=== PATIENT | female | born 1995 | race Caucasian/White ===

== ENCOUNTER 2018-05-20 10:45 | Inpatient (IN) | payer BC, OTHER ==
[2018-05-20] MEDS ORDERED: OXYTOCIN 10000 MU/ML SOL IM PRN (15:31)
[2018-05-20] MEDS ORDERED: CARBOPROST 250 MCG/ML SOL IM PRN (15:31)
[2018-05-20] MEDS ORDERED: MEPIVACAINE HCL 1% MPF 30 ML/VIAL SOL INFIL PRN (15:31)
[2018-05-20] MEDS ORDERED: LACTATED RINGERS 1,000 ML IV PRN (15:31)
[2018-05-20] MEDS ORDERED: METHYLERGONOVINE MALEATE 0.2 MG/ML SOL IM PRN (15:31)
[2018-05-20] MEDS ORDERED: SODIUM CHLORIDE 0.9% FLUSH 10 ML SOL IV PRN (15:31)
[2018-05-20] MEDS ORDERED: SODIUM CHLORIDE 0.9% FLUSH 10 ML SOL IV SCH (15:45)
[2018-05-20] MEDS: FENTANYL 100MCG/2ML SOL IV PRN ×2 (15:55→16:18)
[2018-05-20 15:57] LABS: BASOPHILS % (AUTO) 0 % (0-3); EOSINOPHILS % (AUTO) 0 % (0-9); HEMATOCRIT 36 % (35-47); HEMOGLOBIN 11.5 gm/dl (12.0-15.5); LYMPHOCYTES % (AUTO) 13.8 % (10-50); MEAN CORPUSCULAR HEMOGLOBIN 27.6 pg (27.0-32.0); MEAN CORPUSCULAR HGB CONC 31.8 gm/dl (32.0-36.0); MEAN CORPUSCULAR VOLUME 87 fL (81-99); MONOCYTES % (AUTO) 5.9 % (0-12); NEUTROPHILS % (AUTO) 79.7 % (37-80)
[2018-05-20] MEDS: LACTATED RINGERS 1,000 ML IV SCH ×2 (16:30→16:45)
[2018-05-20] MEDS ORDERED: LACTATED RINGERS 1,000 ML IV SCH (16:30)
[2018-05-20] MEDS ORDERED: FENTANYL 250 MCG/ 5ML SOL ONE (16:48)
[2018-05-20] MEDS ORDERED: LIDOCAINE HCL 2% MPF 10 ML SOL ONE (16:48)
[2018-05-20] MEDS ORDERED: ROPIVACAINE HYDROCHLORIDE 5 MG/ML SOL ONE ×2 (16:49→18:01)
[2018-05-20] MEDS ORDERED: NALBUPHINE HCL 20 MG/ML SOL IV PRN (18:32)
[2018-05-20] MEDS ORDERED: DIPHENHYDRAMINE 50 MG/ML SOL IV PRN (18:32)
[2018-05-20] MEDS ORDERED: NALOXONE HYDROCHLORIDE 0.4 MG/ML SOL IV PRN (18:32)
[2018-05-20] MEDS ORDERED: EPHEDRINE SULFATE 50 MG/ML SOL IV PRN (18:32)
[2018-05-20] MEDS ORDERED: ALUMINUM/MAGNESIUM 30 ML SUS PO PRN (20:59)
[2018-05-20] MEDS ORDERED: BENZOCAINE/MENTHOL 1 SPR TOP PRN (22:47)
[2018-05-20] MEDS ORDERED: APAP/HYDROCODONE 1 EACH TABLET PO PRN (22:47)
[2018-05-20] MEDS ORDERED: FLEET ENEMA PR PRN (22:47)
[2018-05-20] MEDS ORDERED: METHYLERGONOVINE MALEATE 0.2 MG TAB PO PRN (22:47)
[2018-05-20] MEDS ORDERED: TEMAZEPAM 15MG 15 MG CAP PO PRN (22:47)
[2018-05-20] MEDS ORDERED: BISACODYL 10 MG SUP PR PRN (22:47)
[2018-05-20] MEDS ORDERED: WITCH HAZEL 1 EA PAD TOP PRN (22:47)
[2018-05-21] MEDS: IBUPROFEN 600 MG TAB PO PRN ×3 (03:02→20:32)
[2018-05-21] MEDS: DOCUSATE SODIUM 100 MG SGL PO SCH ×2 (11:40→20:32)
[2018-05-22] MEDS: DOCUSATE SODIUM 100 MG SGL PO SCH (08:57)
[2018-05-22] MEDS: IBUPROFEN 600 MG TAB PO PRN ×2 (08:57→17:32)
[2018-05-22 10:38] VITALS: RESP 18
[2018-05-22 18:24] VITALS: BP 112/73; PULSE 97; TEMP 97.2; O2SAT 96
== END 2018-05-22 19:25 | disposition home or self-care (01) | DRG 560 ==
LOC: OBSVTOIN 10:45 → OB 10:45
PROVIDERS: ADMIT Family Medicine; ATTEND Family Medicine
PROC: 10E0XZZ Delivery of Products of Conception, External Approach (ICD-10-PCS; principal; 2018-05-20)
PROC: 0HQ9XZZ Repair Perineum Skin, External Approach (ICD-10-PCS; 2018-05-20)
DX: O80 Encounter for full-term uncomplicated delivery (principal); O69.81X0 Labor and delivery complicated by cord around neck, without compression, not applicable or unspecified; Z37.0 Single live birth; Z3A.40 40 weeks gestation of pregnancy
CPT/HCPCS: 36415; 59025; 85018; 85025; 94762; J2210; J2590; J2795; J3010; A9270-GY